=== PATIENT | female | born 1985 | race African-American/Black ===

== ENCOUNTER 2024-03-20 07:46 | Emergency (ER) | payer BC, SELFPAY ==
[2024-03-20] MEDS ORDERED: HYDROcodone/Acetaminophen 5/325 mg Tablet ONE (09:41)
[2024-03-20 10:39] LABS: ALT (SGPT) 18 U/L (8-55); AST (SGOT) 15 U/L (5-34); Albumin 3.9 g/dL (3.5-5.0); Alkaline Phosphatase 85 U/L (40-110); Anion Gap 12 mmol/L (10-20); BUN (Urea Nitrogen) 11 mg/dL (7.0-18.7); Bilirubin, Total 0.3 mg/dL (0.2-1.2); Calc. Creatinine Clearance 0 mL/min (70-130); Calcium 9.2 mg/dL (7.8-10.44); Carbon Dioxide 23 mmol/L (22-29); Chloride 106 mmol/L (98-107); Estimated GFR 115; Glucose 90 mg/dL (70-105); Protein, Total 7.9 g/dL (6.0-8.3); Sodium 137 mmol/L (136-145)
[2024-03-20 10:43] LABS: BHCG - Serum Negative (NEGATIVE); Pregs Control Background? CLEAR/WHITE (CLR/WHITE); Pregs Control Bar Appear? YES (CONTROL BAR)
[2024-03-20 10:49] LABS: #Basophils Less than 0.03 10x3/uL (0.0-0.2); %Basophils 0.3 % (0.0-1.0); %Eosinophils 2.9 % (0.0-10.0); %Lymphocytes 31.2 % (21.0-51.0); %Neutrophils 57.3 % (42.0-75.0); Hematocrit 37.2 % (36.0-47.0); Hemoglobin 11.1 g/dL (12.0-16.0); Mean Corpuscular HGB CONC 29.8 g/dL (32.0-36.0); Mean Corpuscular Hemoglobin 22.2 pg (27.0-31.0); Mean Corpuscular Volume 74.4 fL (78.0-98.0); Mean Platelet Volume 9.4 fL (7.4-10.4); Platelet Count 366 10x3/uL (130-400); RBC Distribution Width 19.4 % (11.5-14.5)
[2024-03-20 11:22] LABS: Microcytosis SLIGHT = 6-15 cells HPF (0-5); Platelet Adequacy Comment Platelets Normal
[2024-03-20] MEDS ORDERED: Ketorolac Tromethamine 30 MG (1 mL) VIAL IVP SCH (22:45)
== END 2024-03-20 12:20 | disposition home or self-care (01) ==
LOC: ERS 07:46
DX: R22.32 Localized swelling, mass and lump, left upper limb (principal)
CPT/HCPCS: 36415; 80053; 84703; 85025; 86141; 99283

== ENCOUNTER 2024-03-20 13:07 | Observation (INO) | payer BC, SELFPAY ==
[2024-03-20] MEDS ORDERED: HYDROcodone/Acetaminophen 5/325 mg Tablet ONE (15:38)
[2024-03-20] MEDS ORDERED: Calcium Carbonate 500 MG ChewTAB PO PRN (15:45)
[2024-03-20] MEDS ORDERED: Ketorolac Tromethamine 30 MG (1 mL) VIAL IVP PRN (15:45)
[2024-03-20] MEDS ORDERED: Senokot S 8.6-50 MG TAB PO PRN (15:45)
[2024-03-20] MEDS ORDERED: traMADol HCl 50 MG TAB PO PRN (16:00)
[2024-03-20] MEDS: Vancomycin (BATCH) 2 GM in Premix 1 BAG IVPB SCH (16:36)
[2024-03-20] MEDS ORDERED: Ondansetron PF 4 MG/2 ML Vial ONE (19:37)
[2024-03-20] MEDS: Ondansetron PF 4 MG/2 ML Vial IVP PRN (19:41)
[2024-03-20 23:04] VITALS: BMI 39.6
[2024-03-21] MEDS: Sodium Chloride 0.9% 1,000 ML IV SCH (00:15)
[2024-03-21] MEDS: Vancomycin 1 GM in Premix 1 BAG IVPB SCH (00:16)
[2024-03-21 05:06] LABS: Hematocrit 33.4 % (36.0-47.0); Hemoglobin 9.9 g/dL (12.0-16.0); Mean Corpuscular HGB CONC 29.6 g/dL (32.0-36.0); Mean Corpuscular Hemoglobin 22.2 pg (27.0-31.0); Mean Corpuscular Volume 74.9 fL (78.0-98.0); Mean Platelet Volume 9.7 fL (7.4-10.4); Platelet Count 356 10x3/uL (130-400); RBC Distribution Width 19.4 % (11.5-14.5); Red Blood Cell (RBC) Count 4.46 mill/uL (4.20-5.40)
[2024-03-21 05:48] LABS: ALT (SGPT) 15 U/L (8-55); AST (SGOT) 10 U/L (5-34); Albumin 3.3 g/dL (3.5-5.0); Alkaline Phosphatase 81 U/L (40-110); Anion Gap 11 mmol/L (10-20); BUN (Urea Nitrogen) 12 mg/dL (7.0-18.7); Bilirubin, Total 0.1 mg/dL (0.2-1.2); Calc. Creatinine Clearance 202 mL/min (70-130); Calcium 8.9 mg/dL (7.8-10.44); Carbon Dioxide 25 mmol/L (22-29); Chloride 106 mmol/L (98-107); Estimated GFR 115; Globulin 3.6 g/dL (2.4-3.5); Glucose 93 mg/dL (70-105); Potassium 3.8 mmol/L (3.5-5.1); Protein, Total 6.9 g/dL (6.0-8.3); Sodium 138 mmol/L (136-145)
[2024-03-21 05:54] LABS: Anisocytosis SLIGHT = 6-15 cells HPF (0-5); Hypochromia SLIGHT = 6-15 cells HPF (0-5); Microcytosis SLIGHT = 6-15 cells HPF (0-5); Platelet Adequacy Comment Platelets Normal
[2024-03-21 05:55] LABS: Vancomycin, Random 24.4 ug/mL (See Comment)
[2024-03-21 05:56] LABS: #Basophils Less than 0.03 10x3/uL (0.0-0.2); %Basophils 0.2 % (0.0-1.0); %Lymphocytes 28.9 % (21.0-51.0); %Monocytes 11.2 % (0.0-10.0); %Neutrophils 57.3 % (42.0-75.0)
[2024-03-21] MEDS: FLU (Fluarix Triv) TS24-25(6MOS UP)/PF 45 MCG/0.5 ML Syringe IM ONE (07:58)
[2024-03-21] MEDS ORDERED: Bupivacaine PF 0.5% 30 ML VIAL ONE (09:29)
[2024-03-21] MEDS ORDERED: Bacitracin Zinc Ointment 30 gm TUBE ONE (09:29)
[2024-03-21] MEDS ORDERED: Famotidine/PF 20 mg/2ml Vial ONE (10:32)
[2024-03-21] MEDS ORDERED: PROPOFOL 20 ML ONE ×2 (10:42→10:59)
[2024-03-21] MEDS ORDERED: Lidocaine 2% PF 5 ML VIAL ONE (10:42)
[2024-03-21] MEDS ORDERED: fentaNYL PF 100 MCG/2 ML SYRINGE ONE (10:42)
[2024-03-21] MEDS ORDERED: SUCCINYLCHOLINE/SOD CL,ISO/PF 200 MG/10 ML SYRINGE FS ONE (10:55)
[2024-03-21] MEDS ORDERED: Albuterol HFA (OR) 200 PUFF INH ONE ×2 (10:55→11:08)
[2024-03-21] MEDS ORDERED: fentaNYL 50 mcg/mL 1 mL Vial ONE (11:11)
[2024-03-21] MEDS ORDERED: Ondansetron PF 4 MG/2 ML Vial ONE (11:12)
[2024-03-21] MEDS ORDERED: Ketorolac Tromethamine 30 MG (1 mL) VIAL ONE (11:12)
[2024-03-21] MEDS ORDERED: Dexamethasone 20 MG/5 ML VIAL ONE (11:12)
[2024-03-21] MEDS: Acetaminophen 325 MG TAB PO PRN (14:13)
[2024-03-21] MEDS: Vancomycin (BATCH) 1.5 GM in Premix 1 BAG IVPB SCH (17:27)
[2024-03-22 08:23] VITALS: BP 148/93; TEMP 98
== END 2024-03-22 10:56 | disposition home or self-care (01) ==
LOC: ERS 13:07 → SUATTDRO 13:07 → ERHOLD 15:45 → T4-A 15:45
PROVIDERS: ADMIT Internal Medicine; ATTEND Internal Medicine
PROC: 0H9FXZZ Drainage of Right Hand Skin, External Approach (ICD-10-PCS; principal; 2024-03-22)
PROC: 0HTQXZZ Resection of Finger Nail, External Approach (ICD-10-PCS; 2024-03-22)
DX: L03.012 Cellulitis of left finger (principal); Z88.2 Allergy status to sulfonamides
CPT/HCPCS: 36415; 80053; 80202; 85025; 87040; 87070; 87149; 87205; 96365; 96366; 96376; G0378; J0665; J1100; J1885; J2405; J2704; J3010; J3370; J3370-JW; J3490; J7030